=== PATIENT | male | born 1980 | race Caucasian/White ===

== ENCOUNTER 2016-07-02 10:20 | Emergency (ER) | payer OTHER ==
[2016-07-02 11:01] VITALS: BP 136/78
[2016-07-02] MEDS ORDERED: BSS OPTH.SOL* BTL ONE (11:39)
[2016-07-02] MEDS ORDERED: Fluorescein Sodium TOPICAL* 1 MG TEST ONE (11:39)
[2016-07-02] MEDS ORDERED: Tetracaine 0.5% OPTH.SOL 15ML* BTL ONE (11:39)
[2016-07-02] MEDS ORDERED: Ciprofloxacin 0.3% OPTH.SOL* 2.5 ML BTL RIGHT EYE SCH (12:00)
[2016-07-02] MEDS ORDERED: Ciprofloxacin 0.3% OPTH.SOL* 2.5 ML BTL ONE (12:00)
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
== END 2016-07-02 12:17 | disposition home or self-care (01) ==
LOC: UCEAST 10:20
DX: H16.002 Unspecified corneal ulcer, left eye (principal)
CPT/HCPCS: 99213; A9270-GY; G0463

== ENCOUNTER 2016-08-14 15:26 | Emergency (ER) | payer OTHER ==
[2016-08-14 15:42] VITALS: BP 177/82
[2016-08-14] MEDS ORDERED: Raltegravir* 400 MG TAB PO ONE (16:05)
[2016-08-14] MEDS ORDERED: Tenofovir/Emtricitabine(*) TAB PO ONE (16:05)
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
[2016-08-14 18:59] LABS: Hematocrit 49 % (42-52); Hemoglobin 16.4 g/dl (14.0-18.0); Mean Corpuscular HGB Conc 34 g/dl (31-36); Mean Corpuscular Hemoglobin 30 pg (27-31); Mean Corpuscular Volume 90 fL (80-94); Mean Platelet Volume 8 um3 (7.4-10.4); Red Blood Count 5.41 10^6/ul (4.0-5.4); Red Cell Distribution Width 12 % (10.5-15)
[2016-08-14 19:32] LABS: Albumin 4.6 g/dL (3.2-5.2); BUN/Creatinine Ratio 15.5 (8-20); Calcium 9.5 mg/dL (8.6-10.3); EGFR African American 91.1 (>60); EGFR Non-African American 70.8 (>60); Globulin 2.3 g/dL (2-4); Potassium 4.3 mmol/L (3.5-5.0); Total Bilirubin 0.4 mg/dL (0.2-1.0); Total Protein 6.9 g/dL (6.4-8.9)
== END 2016-08-14 16:44 | disposition home or self-care (01) ==
LOC: UCEAST 15:26
DX: S61.233A Puncture wound without foreign body of left middle finger without damage to nail, initial encounter (principal); W46.1XXA Contact with contaminated hypodermic needle, initial encounter
CPT/HCPCS: 36415; 80053; 85025; 86703; 86704; 86706; 86803; 87340; 99203; G0463

== ENCOUNTER 2016-08-30 12:27 | Emergency (ER) | payer OTHER ==
[2016-08-30 13:01] VITALS: BP 128/77
--- NOTE | 2016-08-30 13:41 | UC ---
General HPI - HPI Summary HPI Summary: TWO WEEKS AGO REMOVED EMBEDDED TICK FROM BEHIND RIGHT KNEE. SINCE THAT TIME HAS HAD RED RASH AROUND KNEE. FELT FEVERISH. JOINT ACHES, HEADACHES, KNEES AND ANKLES ACHE, FATIGUE AND BODY ACHES. 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 - History of Current Complaint Chief Complaint: UCGeneralIllness Stated Complaint: TICK BITE Time Seen by Provider: 08/30/16 12:51 Hx Obtained From: Patient Onset/Duration: Gradual Onset, Lasting Weeks, Worse Since - DAILY Onset Severity: Mild Current Severity: Mild Associated Signs & Symptoms: Positive: Fever, Headache, Weakness. Negative: Confusion, Cough, Syncope, SOB, Trauma, Vomiting, Wheezing - Allergy/Home Medications Allergies/Adverse Reactions: Allergies Allergy/AdvReac Type Severity Reaction Status Date / Time No Known Allergies Allergy Verified 08/14/16 15:42 Home Medications: Home Medications buPROPion TAB* [Wellbutrin TAB*] 75 mg PO DAILY 08/30/16 [History Confirmed ] PMH/Surg Hx/FS Hx/Imm Hx Previously Healthy: Yes Endocrine History Of: Denies: Diabetes, Thyroid Disease Cardiovascular History Of: Denies: Cardiac Disorders, Hypertension Respiratory History Of: Denies: COPD, Asthma GI/ History Of: Denies: Ulcer - Surgical History Surgical History: Yes Surgery Procedure, Year, and Place: femur right repair. left acl repair - Family History Known Family History: Positive: Cardiac Disease, Hypertension, Diabetes - Social History Occupation: Employed Part-time Lives: With Family Alcohol Use: Rare Substance Use Type: None, Cocaine Substance Use Comment - Amount & Last Used: none recently Smoking Status (MU): Never Smoked Tobacco - Immunization History Most Recent Tetanus Shot: recent per patient (within the last 5 years) Review of Systems Constitutional: Fever, Fatigue Skin: Rash - BEHIND RIGHT KNEE AT AREA OF TICK BITE Eyes: Negative ENT: Negative Respiratory: Negative Cardiovascular: Negative Gastrointestinal: Negative Genitourinary: Negative Motor: Negative Neurovascular: Negative Musculoskeletal: Arthralgia, Myalgia Neurological: Negative Psychological: Negative All Other Systems Reviewed And Are Negative: Yes Physical Exam Triage Information Reviewed: Yes Appearance: Well-Appearing, No Pain Distress, Well-Nourished Vital Signs: Initial Vital Signs Temp 97.1 F 08/30/16 12:56 Pulse 78 08/30/16 12:56 Resp 14 08/30/16 12:56 BP 128/77 08/30/16 12:56 Pulse Ox 96 08/30/16 12:56 Vital Signs Reviewed: Yes Eye Exam: Normal ENT Exam: Normal ENT: Positive: Normal ENT inspection, Hearing grossly normal, Pharynx normal, TMs normal Dental Exam: Normal Neck exam: Normal Neck: Positive: Supple, Nontender, No Lymphadenopathy Respiratory Exam: Normal Respiratory: Positive: Chest non-tender, Lungs clear, Normal breath sounds, No respiratory distress, No accessory muscle use Cardiovascular Exam: Normal Cardiovascular: Positive: RRR, No Murmur, Pulses Normal Abdominal Exam: Normal Abdomen Description: Positive: Nontender, No Organomegaly Musculoskeletal Exam: Normal Musculoskeletal: Positive: Strength Intact, ROM Intact, No Edema Neurological Exam: Normal, Other - CN 2 -12 INTACT Neurological: Positive: Alert, Muscle Tone Normal Psychological Exam: Normal Skin: Positive: rashes - ERRETHEMA BEHIND RIGHT KNEE Course/Dx - Differential Dx - Multi-Symptom Differential Diagnoses: Metabolic Abnormality, Other - LYME DISEASE Provider Diagnoses: TICK BITE. LYME DISEASE/LYME ARTHRITIS Discharge - Discharge Plan Condition: Stable Disposition: HOME Prescriptions: DOXYcycline CAP(*) [DOXYcycline 100MG CAP(*)] 100 mg PO BID #42 cap Patient Education Materials: Lyme Disease (ED), Tick Bite (ED) Referrals: [facility] [place] [facility] [Outside] Sisi MAGAÑA,Keyur Puga [Medical Doctor] - No Primary Care Phys,NOPCP [Primary Care Provider] -
== END 2016-08-30 13:44 | disposition home or self-care (01) ==
LOC: UCEAST 12:27
DX: A69.23 Arthritis due to Lyme disease (principal)
CPT/HCPCS: 99212; G0463